=== PATIENT | male | born 1955 | race Caucasian/White ===

== ENCOUNTER → 2018-02-26 | Outpatient (CLI) | payer OTHER ==
[~2018-02-26] MED LIST: ACETAMINOPHEN PO; HYDR12.5C PO; LOVASTATIN40 MG PO; MELOXICAM7.5 MG PO; OMEPRAZOLE40 MG PO; OXYCODONE PO; ZESTRIL5 MG PO
== END | disposition home or self-care (01) ==
LOC: US 00:16
DX: K76.0 Fatty (change of) liver, not elsewhere classified (principal); R16.2 Hepatomegaly with splenomegaly, not elsewhere classified

== ENCOUNTER 2023-08-02 17:39 | Emergency (ER) | payer OTHER ==
[~2023-08-02] VITALS: Ht 165.1 cm; Wt 127.0 kg
[~2023-08-02 17:39] MED LIST changes: +ASPIRIN81 M1 PO; +BELBUCA150 MCG BC; +CIPRO500 MG PO; +DELZICOL400 M2 PO; +LISINOPRIL10 M1 PO; +METFORMIN HYD1000 MG PO; +METRONIDAZOLE500 M1 PO; +NEURONTIN300 MG PO; +OXYCODONE-ACET1 EACH PO; +PANTOPRAZOLE SO40 MG PO; +PIOGLITAZONE HC30 MG PO; +TIZANIDINE HCL4 MG PO
[2023-08-02 17:47] VITALS: BP 141/91
[2023-08-02] MEDS ORDERED: ACETAMINOPHEN 325 MG TAB PO ONE (17:55)
== END 2023-08-02 19:30 | disposition home or self-care (01) ==
LOC: ED 17:39
DX: M17.12 Unilateral primary osteoarthritis, left knee (principal); I10 Essential (primary) hypertension; K21.9 Gastro-esophageal reflux disease without esophagitis; E11.9 Type 2 diabetes mellitus without complications; I25.10 Atherosclerotic heart disease of native coronary artery without angina pectoris; E78.00 Pure hypercholesterolemia, unspecified; Z98.890 Other specified postprocedural states